=== PATIENT | male | born 1995 | race Caucasian/White ===

== ENCOUNTER → 2020-08-04 | Outpatient (REF) | payer BC ==
[2020-08-04 14:22] LABS: SEMEN APPEARANCE OPAQUE (OPAQUE); SEMEN VISCOSITY LIQUID (LIQUID); SEMEN WBC <=1 M/ml (<=1 M/ml)
== END ==
LOC: M LAB REF 14:12
PROVIDERS: ATTEND Obstetrics & Gynecology Obstetrics
DX: N46.9 Male infertility, unspecified (principal)

== ENCOUNTER → 2020-08-12 | Outpatient (REF) | payer BC ==
[2020-08-12 09:54] LABS: SEMEN APPEARANCE OPAQUE (OPAQUE); SEMEN VISCOSITY LIQUID (LIQUID); SEMEN VOLUME 2.1 ML (2.0-5.0); SEMEN WBC <=1 M/ml (<=1 M/ml); SEMEN pH 8.5 (7.0-8.0)
== END ==
LOC: M LAB REF 09:19
PROVIDERS: ATTEND Obstetrics & Gynecology Obstetrics
DX: N46.9 Male infertility, unspecified (principal)

== ENCOUNTER → 2020-09-16 | Outpatient (CLI) | payer BC ==
[2020-09-16 11:28] LABS: FOLLICLE STIMULATING HORMONE 17.2 mIU/mL (1.4-18.1); LUTEINIZING HORMONE 5.3 mIU/mL (1.5-9.3); PROLACTIN 5.9 NG/ML (2.1-17.7)
[2020-09-17 20:13] LABS: TESTOSTERONE FREE (DIRECT) 17.6 pg/mL (9.3-26.5)
== END ==
LOC: M LAB 10:20
PROVIDERS: ATTEND Specialist
DX: E29.1 Testicular hypofunction (principal)